=== PATIENT | female | born 1980 | race Two or more races ===

== ENCOUNTER 2021-10-27 19:48 | Emergency (ER) | payer MEDICAID, OTHER ==
[~2021-10-27] VITALS: Ht 157.5 cm; Wt 90.7 kg
[2021-10-27 21:01] VITALS: BP 132/87
== END 2021-10-27 22:05 | disposition home or self-care (01) ==
LOC: ER 19:52
DX: R22.42 Localized swelling, mass and lump, left lower limb (principal)
CPT/HCPCS: 93971

== ENCOUNTER 2021-10-29 11:03 | Emergency (ER) | payer MEDICAID ==
[~2021-10-29] VITALS: Ht 162.6 cm; Wt 79.4 kg
[2021-10-29 11:04] VITALS: BP 142/104
[2021-10-29] MEDS ORDERED: SUMA50TA2 PO (11:41)
[2021-10-29] MEDS ORDERED: KETOROLAC TROMETH 60MG/2ML VIAL IM ONE (11:45)
== END 2021-10-29 11:58 | disposition home or self-care (01) ==
LOC: ER 11:03
DX: G43.909 Migraine, unspecified, not intractable, without status migrainosus (principal)
CPT/HCPCS: 96372; 99283; J1885